=== PATIENT | female | born 1940 | race Two or more races ===

== ENCOUNTER 2021-12-10 12:01 | Emergency (ER) | payer SELFPAY ==
[~2021-12-10] VITALS: Ht 154.9 cm; Wt 66.7 kg
--- NOTE | 2021-12-10 12:35 | NUR ---
BIBFAMILY C/O "Started having nosebleed around 0800 denies injury or trauma". AMBULATORY, PLACED ON BED, AAOX4, BREATHING EVEN AND UNLABORED.
--- NOTE | 2021-12-10 13:30 | NUR ---
CHRONIC CONDITION NURSE AT BEDSIDE
[2021-12-10] MEDS ORDERED: OXYMETAZOLINE HCL NASAL SPRAY 30 ML BOTTLE NS ONE (13:43)
[2021-12-10] MEDS ORDERED: LIDOCAINE 0.5%-EPI 1:200,000 50 ML VIAL ONE (13:43)
[2021-12-10 14:04] LABS: BASOPHILS % (AUTO) 0.5 % (0.0-2.0); EOSINOPHILS % (AUTO) 0.6 % (0.0-6.0); HEMATOCRIT 41 % (33-45); HEMOGLOBIN 13.3 g/dL (11.5-14.8); LYMPHOCYTES # (AUTO) 1.3 K/uL (0.8-4.8); LYMPHOCYTES % (AUTO) 15.5 % (20.0-44.0); MEAN CORPUSCULAR HGB CONC 33 g/dl (31.0-36.0); MEAN CORPUSCULAR VOLUME 88 fL (82-100); MONOCYTES # (AUTO) 0.5 K/uL (0.1-1.30); MONOCYTES % (AUTO) 6.6 % (2.0-12.0); NEUTROPHILS # (AUTO) 6.3 K/uL (1.8-8.9); NEUTROPHILS % (AUTO) 76.8 % (43.0-81.0); PLATELET COUNT (AUTO) 341 K/uL (150-450); RED BLOOD CELL COUNT(AUTO) 4.61 MIL/uL (4.0-5.2); WHITE BLOOD COUNT (AUTO) 8.2 K/uL (4.3-11.0)
--- NOTE | 2021-12-10 14:44 | NUR ---
Patient discharged to home in stable condition. Written and verbal after care instructions given. Patient verbalizes understanding of instruction.
[2021-12-10 14:45] VITALS: BP 130/70
== END 2021-12-10 14:40 | disposition home or self-care (01) ==
LOC: ER 12:08
DX: R04.0 Epistaxis (principal)
CPT/HCPCS: 99284; 30901; 85025; 85610; 36415; J3490